=== PATIENT | male | born 1945 | race Caucasian/White ===

== ENCOUNTER 2019-03-07 05:22 | Day surgery (SDC) | payer MEDICARE, OTHER ==
[~2019-03-07] VITALS: Ht 157.5 cm; Wt 82.6 kg
[2019-03-07] VITALS (18 sets, daily range): BP systolic 97–149; BP diastolic 53–85; PULSE 60–78; RESP 14–21; Ht 157.5 cm; Wt 82.6 kg
[~2019-03-07 05:22] MED LIST: ASPI-903 PO; DONE10TA58; LISI-313 PO; MELO15TA30; METF500T24 PO; SOLI10TA2; SULF-182 ORAL
[2019-03-07] MEDS ORDERED: ACETAMINOPHEN 500 MG TAB PO ONE (06:30)
--- NOTE | 2019-03-07 07:15 | PREAC ---
Date/Time of Note Date/Time of Note DATE: 03/07/19 TIME: 07:12 Anesthesia Eval and Record Evaluation Time Pre-Procedure Interview DATE: 03/07/19 TIME: 07:12 Age 73 Sex male NPO: 8 hrs Preoperative diagnosis history of malignant neoplasm of bladder Planned procedure cystoscopy bladder biopsy and fulgurations Past Medical History Past Medical History: Includes (hx bladder CA) Cardio: HTN Endo: Diabetes (pre DM), Hypothyroid Surgery & Anesthesia Issues No known issue Meds Anticoagulation: No Beta Ashly within 24 hr: No Reason Beta Ashly not given: Pt. not on B-Ashly Reported Medications Sulfamethoxazole/Trimethoprim (Sulfamethoxazole-Tmp Ds Tablet) 1 Each Tablet, 1 TAB ORAL BID 03/07/19 Aspirin* (Aspirin* Chew) 81 Mg Tab.chew, 81 MG PO DAILY 11/25/12 Lisinopril* (Lisinopril*) 5 Mg Tablet, 5 MG PO DAILY 11/25/12 Metformin Hcl* (Metformin Hcl*) 500 Mg Tablet, 500 MG PO BID 11/25/12 Discontinued Reported Medications Meloxicam* (Mobic*) 15 Mg Tablet, #30 02/21/16 Donepezil HCl (Aricept) 10 Mg Tablet, #30 02/21/16 Solifenacin* (Vesicare*) 10 Mg Tablet, #30 02/21/16 Meds reviewed: Yes Allergies Coded Allergies: No Known Drug Allergies (Verified Allergy, Unknown, 03/07/19) Allergies Reviewed: Yes Labs/Studies Labs Reviewed: Reviewed by anesthesiologist test: N/A Pre-procedure Exam Last vitals Vital Signs Date Temp Pulse Resp B/P (MAP) Pulse Ox O2 O2 Flow FiO2 Time Delivery Rate 03/07/19 97.2 61 17 128/65 95 Room Air 06:43 (86) Airway: Adequate mouth opening, Adequate thyromental dist Mallampati: Mallampati II Teeth: Normal Lung: Normal Heart: Normal ASA Physical Status ASA physical status: 2 Emergency: None Planned Anesthetic General/MAC: ETT, LMA Pre-operative Attestations Prior to commencing anesthesia and surgery, the patient was re-evaluated, there was verification of: *The patient's identity *The results of appropriate recent lab work and preoperative vital signs *The above evaluation not changing prior to induction *Anesthetic plan, risk benefits, alternative and complications discussed with patient/family; questions answered; patient/family understands, accepts and wishes to proceed. GELACIO ARGUETA Mar 07, 2019 07:15
[2019-03-07] MEDS ORDERED: hydrALAzine 20 MG INJ IV PRN (07:30)
[2019-03-07] MEDS ORDERED: FENTAnyl 50 MCG/ML VIAL IV PRN ×2 (07:30)
[2019-03-07] MEDS ORDERED: MEPERIDINE 25 MG INJ IV PRN (07:30)
[2019-03-07] MEDS ORDERED: morphine 2 MG INJ IV PRN ×2 (07:30)
[2019-03-07] MEDS ORDERED: ALBUTEROL 0.083% (NEB) 2.5 MG/3 ML AMP HHN PRN (07:30)
[2019-03-07] MEDS ORDERED: OXYCODONE/ACETAMINOPHEN (5/325) TAB PO PRN ×2 (07:30)
[2019-03-07] MEDS ORDERED: EPHEDrine 25 MG/5 ML SYG IV PRN (07:30)
[2019-03-07] MEDS ORDERED: ONDANSETRON 4 MG INJ IV PRN (07:30)
[2019-03-07] MEDS ORDERED: HYDROmorphONE 1 MG/5 ML IV SYRINGE IV PRN ×3 (07:30)
[2019-03-07] MEDS ORDERED: LABETALOL HCL 20MG INJ IV PRN (07:30)
[2019-03-07] MEDS ORDERED: DIPHENHYDRAMINE 50 MG INJ IV PRN (07:30)
--- NOTE | 2019-03-07 07:30 | HPN ---
Date/Time of Note Date/Time of Note DATE: 03/07/19 TIME: 07:30 Interval H&P Admission Note Pt. seen H&P reviewed: No system changes JOSEPH ROMERO MD Mar 07, 2019 07:30
[2019-03-07] MEDS ORDERED: LIDOCAINE 2% (SDV) 5 ML INJ ONE (07:32)
[2019-03-07] MEDS ORDERED: CEFAZOLIN 1 GM INJ ONE (07:32)
[2019-03-07] MEDS ORDERED: PROPOFOL 40 ML ONE (07:32)
[2019-03-07] MEDS ORDERED: ONDANSETRON 4 MG INJ ONE (07:33)
[2019-03-07] MEDS ORDERED: FAMOTIDINE 20 MG INJ ONE (07:33)
[2019-03-07] MEDS ORDERED: MIDAZOLAM 1 MG/ML 2 ML INJ ONE (07:33)
[2019-03-07] MEDS ORDERED: FENTAnyl 50 MCG/ML VIAL ONE ×2 (07:33→08:34)
[2019-03-07] MEDS ORDERED: EPHEDrine 25 MG/5 ML SYG ONE (07:58)
[2019-03-07] MEDS ORDERED: VANCOMYCIN IV PER PHARMACY XX SCH (08:00)
[2019-03-07] MEDS ORDERED: VANCOMYCIN 1.5 GM/NS 250 ML 250 ML IVPB ONE (08:00)
[2019-03-07] MEDS ORDERED: INDIGOTINDISULFONATE 0.8% 5 ML INJ ONE (08:11)
[2019-03-07] MEDS ORDERED: KETOROLAC 30 MG INJ ONE (08:20)
[2019-03-07] MEDS ORDERED: SUGAMMADEX SODIUM 200 MG/2 ML VIAL IV ONE (08:22)
--- NOTE | 2019-03-07 09:11 | PAC ---
Date/Time of Note Date/Time of Note DATE: 03/07/19 TIME: 09:10 Post-Anesthesia Notes Post-Anesthesia Note Last documented vital signs Vital Signs Date Temp Pulse Resp B/P (MAP) Pulse Ox O2 O2 Flow FiO2 Time Delivery Rate 03/07/19 97.2 98 61 74 17 18 128/65 95 98 Room 06:43 090 (86) 145/ Air face 9 65 mask 6L Activity: WNL Respiratory function: WNL Cardiovascular function: WNL Mental status: Baseline Pain reasonably controlled: Yes Hydration appropriate: Yes Nausea/Vomiting absent: Yes GELACIO ARGUETA Mar 07, 2019 09:11
--- NOTE | 2019-03-07 09:17 | OPR ---
Date/Time of Note Date/Time of Note DATE: 03/07/19 TIME: 09:08 Operative Report Procedure Date: Mar 07, 2019 Preoperative Diagnosis History of bladder tumor, urinary frequency and urgency Postoperative Diagnosis Same pending pathology report. The bladder capacity is 300 mL or less. He may have interstitial cystitis versus carcinoma in situ. Operation/Procedure Performed Cystoscopy and multiple bladder biopsies from the base of the bladder, right lateral wall of the bladder, anterior bladder and trigone Surgeon see signature line Steam Box Hand hyperbaric technologist Dorita Anesthesia Type: general Anesthesiologist: GELACIO ARGUETA Estimated Blood Loss: minimal Transfusion none Specimen multiple bladder biopsies from the base of the bladder, right lateral wall of the bladder, anterior bladder and trigone Grafts/Implants none Complications none Pt Condition Post Procedure: stable Disposition: PACU Indications Constant urge to urinate, urinary frequency and history of bladder tumor and urinary tract infection. Procedure Description The patient was brought to the operating room and given general endotracheal anesthesia. The patient was then positioned in the lithotomy position. The genital area was prepped and draped in the usual sterile manner. Timeout was done and the patient was identified by his name, birthdate, and the procedure. The patient was given 1.5 g of vancomycin IV at the start of the procedure. I had a urine culture on him in the office that showed staph that is sensitive to vancomycin and resistant to other antibiotics. It was sensitive also to Bactrim which he received preop at home for 1 week. Then his cystoscope sheath 21 Finnish was passed through the urethra all the way to the bladder and urine was collected for culture and sensitivity. Then cystoscopy was done and that showed areas on the right side of the bladder toward the base and anteriorly that are eroded and ulcerated. Findings suggestive of interstitial cystitis but one has to rule out recurrent cancer and carcinoma in situ. Therefore I did take multiple biopsies from the base of the bladder, right lateral wall of the bladder, anterior bladder and the trigone area. The patient was given 5 mL of indigo carmine and the ureteral orifices were identified and secured during the whole procedure. All the bleeders were electrocoagulated, so were the edges and the bases of the area biopsied. At the end of the procedure I inserted a 16 Finnish Patton catheter and connected to a drainage bag. The patient tolerated the procedure well and was transferred to recovery room in a stable and satisfactory condition. JOSEPH ROMERO MD Mar 07, 2019 09:17
[2019-03-07] MEDS ORDERED: HYDROCODONE/APAP (5/325) TAB PO PRN (09:30)
== END 2019-03-07 11:20 | disposition home or self-care (01) ==
LOC: SDS 05:22
PROVIDERS: ATTEND Urology
DX: R35.0 Frequency of micturition (principal); R39.15 Urgency of urination; N30.20 Other chronic cystitis without hematuria; I10 Essential (primary) hypertension; E03.9 Hypothyroidism, unspecified; R73.03 Prediabetes
CPT/HCPCS: 52204; 82962; 87086; 88307; J0690; J1170; J1885; J2175; J2250; J2405; J3010; J3370